=== PATIENT | male | born 1990 | race Hispanic/Latino ===

== ENCOUNTER 2018-08-25 02:47 | Emergency (ER) | payer OTHER, SELFPAY ==
[2018-08-25] MEDS ORDERED: Ketorolac Tromethamine 60 MG/2 ML VIAL ONE (03:30)
[2018-08-25] MEDS ORDERED: Metoclopramide HCl 10 MG/2 ML VIAL ONE (03:30)
[2018-08-25 03:43] LABS: #Basophils 0.1 thou/uL (0.0-0.2); #Eosinphils 0.1 thou/uL (0.0-0.7); #Lymphocytes 2.5 thou/uL (1.20-3.40); #Monocytes 0.6 thou/uL (0.11-0.59); #Neutrophils 8.7 thou/uL (1.40-6.50); %Basophils 0.9 % (0.0-1.0); %Lymphocytes 20.5 % (21.0-51.0); %Monocytes 5.1 % (0.0-10.0); %Neutrophils 72.6 % (42.0-75.0); Hemoglobin 14.5 g/dL (14.0-18.0); Mean Corpuscular HGB CONC 31.9 g/dL (32.0-36.0); Mean Corpuscular Hemoglobin 28.2 pg (27.0-31.0); Mean Corpuscular Volume 88.5 fL (78.0-98.0); Mean Platelet Volume 7.3 fL (7.4-10.4); Platelet Count 270 thou/uL (130-400); RBC Distribution Width 12.9 % (11.5-14.5); Red Blood Cell (RBC) Count 5.13 mill/uL (4.70-6.10)
[2018-08-25 03:55] LABS: ALT (SGPT) 32 U/L (8-55); AST (SGOT) 19 U/L (5-34); Albumin 3.9 g/dL (3.5-5.0); Alkaline Phosphatase 84 U/L (40-150); Anion Gap 14 mmol/L (10-20); BUN (Urea Nitrogen) 12 mg/dL (8.9-20.6); Bilirubin, Total 0.4 mg/dL (0.2-1.2); Calc. Creatinine Clearance 0 mL/min (70-130); Calcium 8.9 mg/dL (7.8-10.44); Carbon Dioxide 26 mmol/L (22-29); Chloride 106 mmol/L (98-107); Estimated GFR-MDRD Greater than 90; Globulin 3.3 g/dL (2.4-3.5); Glucose 149 mg/dL (70-105); Potassium 4.1 mmol/L (3.5-5.1); Protein, Total 7.2 g/dL (6.0-8.3); Sodium 142 mmol/L (136-145)
== END 2018-08-25 04:10 | disposition home or self-care (01) ==
LOC: MADERS 02:47
DX: R51 Headache (principal)
CPT/HCPCS: 36415; 80053; 85025; 96372; J1885; J2765

== ENCOUNTER 2018-10-24 23:30 | Emergency (ER) | payer OTHER, SELFPAY | END 2018-10-25 00:02 | disposition home or self-care (01) | LOC: MADERS 23:30 | DX: K62.5 Hemorrhage of anus and rectum (principal) | CPT/HCPCS: 99283 ==

== ENCOUNTER 2018-11-08 19:08 | Emergency (ER) | payer OTHER, SELFPAY | END 2018-11-08 19:41 | disposition home or self-care (01) | LOC: MADERS 19:08 | DX: H66.92 Otitis media, unspecified, left ear (principal) | CPT/HCPCS: 99281 ==

== ENCOUNTER 2021-05-14 19:19 | Emergency (ER) | payer OTHER, SELFPAY ==
[2021-05-14] MEDS ORDERED: Ondansetron ODT 4 MG TAB ONE (19:33)
[2021-05-14] MEDS ORDERED: Ibuprofen 800 MG TAB ONE (20:22)
== END 2021-05-14 21:47 | disposition home or self-care (01) ==
LOC: MADERS 19:19
DX: U07.1 COVID-19 (principal); E86.0 Dehydration
CPT/HCPCS: 99283; Q0162

== ENCOUNTER 2024-01-04 19:38 | Emergency (ER) | payer BC, SELFPAY ==
[2024-01-04] MEDS ORDERED: Lidocaine 4% Patch ONE (20:52)
[2024-01-04] MEDS ORDERED: Dexamethasone 10 MG/ML VIAL ONE (20:52)
== END 2024-01-04 21:30 | disposition home or self-care (01) ==
LOC: MADERS 19:38
DX: M25.511 Pain in right shoulder (principal)
CPT/HCPCS: 96372; J1100